=== PATIENT | female | born 1975 | race Caucasian/White ===

== ENCOUNTER 2017-11-22 01:32 | Emergency (ER) | payer OTHER ==
[~2017-11-22] VITALS: Ht 165.1 cm; Wt 109.8 kg
[~2017-11-22 01:32] MED LIST: NO MEDS
[2017-11-22 01:44] VITALS: BP 121/83
[2017-11-22 02:16] LABS: HEMATOCRIT 41.6 % (36.0-46.0); HEMOGLOBIN 13.7 G/DL (11.9-15.5); MCH 26.9 PG (29.0-34.0); MCHC 32.9 G/DL (30.0-36.0); MCV 81.7 FL (83-99); PLATELET COUNT 346 K/uL (156-360); RBC DIS.WIDTH-CV 14.5 % (11.8-14.6); RBC DIS.WIDTH-SD 42.6 % (39-53); RED BLOOD COUNT 5.09 M/uL (3.80-5.20)
[2017-11-22 02:22] LABS: ALBUMIN 4.2 g/dL (3.2-4.8); CHLORIDE 98 mEq/L (99-109); POTASSIUM 3.7 mEq/L (3.7-5.4); SODIUM 136 mEq/L (136-147)
[2017-11-22 02:24] LABS: GLUCOSE 285 mg/dL (70-99); TOTAL PROTEIN 7.9 g/dL (6.4-8.3)
[2017-11-22 02:26] LABS: TOTAL BILIRUBIN 0.5 mg/dL (0.0-1.0)
[2017-11-22 02:28] LABS: ALKALINE PHOSPHATASE 124 IU/L (3-129); CREATININE 0.8 mg/dL (0.6-1.3); GFR ESTIMATE (CALCULATED) > 59 mL/min/
[2017-11-22 02:29] LABS: UREA NITROGEN (BUN) 12 mg/dL (9-23)
[2017-11-22 02:30] LABS: AST (GOT) 19 IU/L (2-34)
[2017-11-22 02:31] LABS: ALT (GPT) 28 IU/L (3-49); LIPASE 12 U/L (1.0-51.0)
[2017-11-22 02:38] LABS: QUANTITATIVE HCG < 4.0 MIU/ML
[2017-11-22 04:14] LABS: APPEARANCE SL.HAZY ((CLEAR)); BILIRUBIN NEGATIVE; BLOOD LARGE; COLOR YELLOW ((YELLOW)); GLUCOSE (STRIP) >=500; KETONES 20; LEUKOCYTES NEGATIVE; NITRITE NEGATIVE; PROTEIN (STRIP) 100; SPECIFIC GRAVITY 1.038 (1.000-1.030); UROBILINOGEN 0.2 MG/DL (0.2-1.0)
[2017-11-22 04:56] LABS: BACTERIA NONE SEEN /HPF; EPITHELIAL CELLS RARE /HPF; MUCUS NONE SEEN /LPF; RED BLOOD CELLS TNTC /HPF (0-5); UCUL ADDED? YES; WHITE BLOOD CELLS 0-5 /HPF (0-5)
== END 2017-11-22 06:00 | disposition left against medical advice (07) ==
LOC: EME 01:32
DX: R10.9 Unspecified abdominal pain (principal); Z53.21 Procedure and treatment not carried out due to patient leaving prior to being seen by health care provider
CPT/HCPCS: 74176; 80053; 81003; 83690; 84702; 85027; 87086